=== PATIENT | male | born 1975 ===

== ENCOUNTER 2021-02-23 08:00 | Outpatient (REF) | payer BC, SELFPAY ==
[2021-02-23 09:11] LABS: Alanine Aminotransferase 12 U/L (0-40); Albumin Level 4.2 g/dL (3.5-5.0); Alkaline Phosphatase 67 U/L (39-117); Anion Gap 11 (12-20); Aspartate Amino Transferase 13 U/L (5-37); Bilirubin Total 0.5 mg/dL (0.0-1.0); Blood Urea Nitrogen 11 mg/dL (9-16); Calcium 9.4 mg/dL (8.4-10.2); Carbon Dioxide 25 mmol/L (22-29); Chloride 109 mmol/L (96-108); Cholesterol 122 mg/dL; Estimated Glomerular Filt Rate > 60; Glucose Fasting 95 mg/dL (60-99); HDL Cholesterol 31 mg/dL; LDL Cholesterol Calculated 68 mg/dl; Potassium 4.8 mmol/L (3.3-5.1); Sodium 140 mmol/L (135-145); Total Protein 7.3 g/dL (6.5-8.0); Triglycerides 116 mg/dL
[2021-02-23 09:36] LABS: Prostate Specific Antigen Scr 0.32 ng/mL (<0.05-4.0); TSH reflex Free T4 0.67 uIU/mL (0.32-4.0)
[2021-02-24 11:11] LABS: LDL Cholesterol Direct 73 mg/dL (<100)
== END 2021-02-23 08:01 | disposition home or self-care (01) ==
LOC: HO.LAB 08:00
PROVIDERS: PCP Family Medicine; Visit Provider Family Medicine
DX: Z00.00 Encounter for general adult medical examination without abnormal findings (principal); R10.32 Left lower quadrant pain; K92.1 Melena; Z12.5 Encounter for screening for malignant neoplasm of prostate; Z90.49 Acquired absence of other specified parts of digestive tract
CPT/HCPCS: 36415; 80053; 80061; 83721; 84153; 84443

== ENCOUNTER → 2021-03-08 14:26 | Outpatient (BNVA) | payer OTHER, SELFPAY | PROVIDERS: PCP Family Medicine; Referring Provider Family Medicine; Visit Provider Nurse Practitioner ==

== ENCOUNTER 2021-03-12 09:09 | Emergency (ER) | payer BC, SELFPAY ==
--- NOTE | ~2021-03-12 | CT_ITS ---
EXAMINATION: CT ABDOMEN AND PELVIS WITH CONTRAST CLINICAL INFORMATION: Left lower quadrant pain, history of diverticulitis with abscess COMPARISON: CT abdomen pelvis 02/28/2019 TECHNIQUE: Multidetector volumetric images were obtained from the superior aspect of the liver through the pubic symphysis following administration 85 mL of Omnipaque 350 intravenous contrast. Sagittal and coronal reformatted images were obtained on the technologist's workstation. Oral contrast: No This CT examination was performed using dose optimization techniques as appropriate, variously including the following: *Automated exposure control *Adjustment of mA and/or kV according to patient size (this includes techniques or standardized protocols for targeted exams where dose is matched to indication/reason for exam; i.e. extremities or head) *Use of iterative reconstruction technique DLP: 475 mGy-cm FINDINGS: LUNG BASES: There is platelike atelectasis right middle lobe medially. The lung bases are clear. The heart size is normal. LIVER, GALLBLADDER, AND BILIARY TREE: The liver is normal in size, shape, and attenuation. No focal hepatic lesion or biliary ductal dilatation is present. The gallbladder is small small size without any radiopaque calculi or wall thickening. PANCREAS: Unremarkable. SPLEEN: Unremarkable. ADRENAL GLANDS: Unremarkable. KIDNEYS AND URETERS: The kidneys are normal in size, shape, and attenuation. No hydronephrosis, hydroureter, or calculi seen. No perinephric stranding. BLADDER: The bladder is nondistended with mild anterior bladder wall thickening. No radiopaque calculi seen. GASTROINTESTINAL TRACT: There is scattered diverticuli, stool seen throughout the colon without distention or diverticulitis. There are annular sutures in the mid sigmoid colon with widely patent lumen. The small bowel loops are normal caliber. Appendix is normal caliber ABDOMINAL WALL: No significant hernia is appreciated. LYMPH NODES: No abnormal size retroperitoneal or mesenteric lymph nodes seen. VASCULAR: Unremarkable. PELVIC VISCERA: The prostate gland is normal size with central gland calcification. The soft tissues are normal. OSSEOUS STRUCTURES: Mild ventral spondylosis lower dorsal and lower lumbar spine. No lytic process. CT/CT abdomen pelvis w con IMPRESSION: Scattered colonic diverticulosis without diverticulitis. Anastomotic suture line along the mid sigmoid colon is widely patent. There is moderate stool in the left colon. Nonspecific mild anterior bladder wall thickening. Mild prostate enlargement. No acute intra-abdominal process Fleischner guidelines were followed.
[2021-03-12 09:14] VITALS: BP 136/76; PULSE 78; RESP 16; TEMP 36.1; O2SAT 98; BMI 25.8
--- NOTE | 2021-03-12 09:40 | ED_ITS ---
HPI - Abdominal Pain General Chief Complaint: Abdominal Pain Stated Complaint: l side lower abd pain Time Seen by Provider: 03/12/21 09:31 Source: patient Mode of arrival: ambulatory Limitations: no limitations History of Present Illness HPI narrative: 45-year-old male presents with left lower quadrant abdominal Pain and nausea. Patient has a history of diverticulitis with abscess of sigmoid colon requiring colon resection in [address] Hernandez. Patient states that since 2019 he has had ongoing symptoms of rectal bleeding, left lower quadrant pain, and nausea. States that the symptoms went away some months ago, but the last 2 months he has had increasing symptoms of left lower quadrant pain. patient endorses bright red blood per rectum and dark red blood. States he has been diagnosed with internal hemorrhoids. His patient had a visit with GI on March 08, 2021 for hematochezia, they recommended he get a CT scan. Patient states he has had regular bowel movements, no vomiting or diarrhea, no fevers, he is able to eat and drink. No chest pain, no lightheadedness, no shortness of breath. Patient is not vaccinated for COVID. Related Data Previous Rx's Medication Instructions Recorded lidocaine 5 % topical patch 1 patch TOPICAL DAILY #15 ea 03/12/21 Allergies Allergy/AdvReac Type Severity Reaction Status Date / Time shellfish derived Allergy Unknown HIVES Verified 03/08/21 14:39 [SHELLFISH DERIVED] Shellfish Allergy Unknown hives Uncoded 02/10/21 10:31 shellfish Allergy Unknown hives Uncoded 02/10/21 10:31 Review of Systems Constitutional: Denies body ache(s), Denies chills, Denies fatigue, Denies fever(s), Denies headache(s), Denies malaise and Denies weakness Eyes: Denies diplopia Denies vertigo, Denies dizziness, Denies otalgia, Denies headache(s), Denies mouth pain, Denies post nasal drip, Denies sinus pain, Denies sinus pressure, Denies sore throat and Denies throat swelling Cardiovascular: Denies chest pain, Denies syncope, Denies leg edema, Denies lightheadedness, Denies Loss of Consciousness, Denies palpitations and Denies dyspnea Respiratory: Denies chest congestion, Denies cough and Denies dyspnea Gastrointestinal: Reports abdominal pain, Reports melena, Reports hematochezia, Denies constipation, Denies diarrhea, Reports nausea and Denies vomiting Genitourinary: Denies genital lesions, Denies genital pain, Denies dysuria, Denies flank pain, Denies penile discharge, Denies scrotal swelling, Denies testicular mass, Denies testicular pain, Denies urinary frequency, Denies urinary hesitancy, Denies urinary incontinence and Denies urinary urgency Musculoskeletal: Reports no additional musculoskeletal complaints Denies confusion, Denies vertigo, Denies dizziness, Denies syncope, Denies headache(s) and Denies weakness Psychiatric: Denies anxiety, Denies confusion and Denies depression Endocrine: Denies fatigue and Denies palpitations Allergic/Immunologic: Denies throat swelling Physical Exam Verdana 4l Vital Signs: Verdana 4d Verdana 4d Vital Signs: Verdana 4d Verdana 4Bd Last Vital Signs Verdana 4d [employer] New 4d [employer] New 4d Temp 97 F 03/12/21 09:14 [employer] New 4d Pulse 65 03/12/21 10:31 [employer] New 4d Resp 16 03/12/21 10:31 BP 113/79 03/12/21 10:31 Pulse Ox 98 03/12/21 10:31 BMI result Body Mass Index 25.8 Const: General: no acute distress, alert and awake; No confusion Nutritional Appearance: well nourished Orientation/consciousness: patient oriented x3 and No confusion Limitations: no limitations HENMT: Head: Yes normal to inspection, Yes normocephalic and Yes atraumatic Ears: hearing grossly normal bilaterally, external ears normal, TM's normal bilaterally and EAC's normal General nose exam: Normal external nose present Face and sinus: Yes normal facial exam and Yes sinuses nontender Mouth: Normal oral and palatal mucosa present Throat: Yes posterior oropharynx normal Eyes: Conjunctivae: conjunctivae normal Pupils: Equal, round and reactive pupils present EOM: EOMs intact bilaterally Neck: Neck: Yes full ROM, Yes no lymphadenopathy and Yes supple Resp: Effort & Inspection: normal respiratory effort and able to speak in complete sentences Auscultation: clear to auscultation bilaterally, no crackles, no rales, no rhonchi and no wheezes Cardio: Rate: regular rate Rhythm: regular rhythm Heart sounds: S1 normal heart sound present and S2 normal heart sound present GI: Inspection: Yes normal to inspection Palpation (GI): Soft to palpation, Tenderness to palpation present (GI) in the LLQ (mild), Guarding due to palpation present (GI) in the LLQ (mild) and not rigid Percussion: Yes normal to percussion Auscultation: normal bowel sounds Rectal Exam - Male: Yes deferred (patient refused) Skin: General skin exam: no rashes or lesions noted Neuro: General: patient oriented x3 and No confusion Cranial nerves: Yes Equal, round and reactive pupils present Extrem: General: Yes normal to inspection and Yes full ROM Psych: Appearance: grossly normal Affect: normal affect Attitude: cooperative Thought process: Normal thought process present Course Course Course Narrative: 45-year-old male presents for left lower quadrant abdominal pain with nausea that has been worsening over the last 2 months. On exam, patient has stable vitals, is tender mildly guarding in his lower left side . Patient is refusing rectal exam. Will get labs, lactate, urine, CT CT/CT abdomen pelvis w con IMPRESSION: Scattered colonic diverticulosis without diverticulitis. ? Anastomotic suture line along the mid sigmoid colon is widely patent. There is moderate stool in the left colon. ? Nonspecific mild anterior bladder wall thickening. Mild prostate enlargement. ? No acute intra-abdominal process Reevaluation(s) Reevaluation #1: patient's chemistries, CBC, lipase, lactate, are all normal. Patient is not feeling better with morphine and Zofran states Tylenol and ibuprofen has not helped for this pain will try ketorolac CT did show mild bladder wall thickening, awaiting urine Reevaluation #2: patient is COVID negative, has trace blood in his urine. Will give Maalox, sent home with a lidocaine patch, counseled patient to follow up with GI, counseled patient to return if sudden severe abdominal pain, nausea vomiting, fevers, chest pain, shortness of breath MDM - Abdominal Pain Differential Diagnosis Differential diagnosis: Likely abdominal pain, calculus of kidney, diverticulitis, mesenteric ischemia, pancreatitis and small bowel obstruction Medical Records Attestation: I reviewed the patient's medical records. Lab Data Attestation: I reviewed the patient's lab results. Result diagrams: 03/12/21 10:26 03/12/21 10:26 Labs: Lab Results 03/12/21 03/12/21 03/12/21 Range/Units 10:26 10:26 10:26 WBC 10.6 (4.8-10.8) X10*3/uL RBC 4.63 (4.60-5.80) X10*6/uL Hgb 13.3 L (14.0-18.0) g/dl Hct 40.7 L (42.0-52.0) % MCV 87.9 (80.0-98.0) fL MCH 28.7 (27.0-33.0) pg MCHC 32.7 (31.0-36.0) g/dl RDW 12.5 (11.0-16.0) % Plt Count 285 (160-400) X10*3/uL MPV 9.8 (9.4-12.4) fL Immature Gran % (Auto) 0.2 (0.0-0.4) % Neut % (Auto) 74.4 H (45-73) % Lymph % (Auto) 18.9 L (20-40) % Florence % (Auto) 6.1 (2-11) % Eos % (Auto) 0.2 (0-4) % Baso % (Auto) 0.2 (0-2) % Lymph # (Auto) 2.0 (1.2-4.9) X10*3/uL Florence # (Auto) 0.6 (0.1-1.2) X10*3/uL Eos # (Auto) 0.0 (0.0-0.4) X10*3/uL Baso # (Auto) 0.0 (0.0-0.2) X10*3/uL Abs Immat Gran (auto) 0.02 (0.00-0.03) X10*3/uL Absolute Neuts (auto) 7.9 (2.0-8.3) x10*3/uL Absolute Nucleated RBC 0.000 (0.0-0.012) X10*3/uL Nucleated RBC % (auto) 0.0 (0.0-0.2) /100WBC Sodium 138 (135-145) mmol/L Potassium 4.2 (3.3-5.1) mmol/L Chloride 108 (96-108) mmol/L Carbon Dioxide 25 (22-29) mmol/L Anion Gap 9 L (12-20) BUN 10 (9-16) mg/dL Creatinine 0.85 (0.5-1.4) mg/dL Estim Creat Clear Calc 97.9 Estimated GFR > 60 Random Glucose 98 (60-115) mg/dL Lactic Acid 0.8 (0.5-2.0) mmol/L Calcium 9.6 (8.4-10.2) mg/dL Total Bilirubin 0.4 (0.0-1.0) mg/dL AST 14 (5-37) U/L ALT 11 (0-40) U/L Alkaline Phosphatase 69 (39-117) U/L Total Protein 7.4 (6.5-8.0) g/dL Albumin 4.2 (3.5-5.0) g/dL Lipase 6 L (8-78) U/L Urine Color Urine Appearance Urine pH (5.0-8.0) Ur Specific [place] (1.005-1.025) Urine Protein (NEG-TRACE) MG/DL Urine Glucose (UA) (NEG) MG/DL Urine Ketones (NEG) MG/DL Urine Blood (NEG) Urine Nitrite (NEG) Ur Leukocyte Esterase (NEG) Urine RBC (0) /HPF Urine WBC (0-4) /HPF Ur Squamous Epith Cells /LPF Urine Bacteria /LPF COVID-19 (DAYAN) COVID-19 Clin Com 03/12/21 03/12/21 03/12/21 Range/Units 11:09 11:20 11:46 WBC (4.8-10.8) X10*3/uL RBC (4.60-5.80) X10*6/uL Hgb (14.0-18.0) g/dl Hct (42.0-52.0) % MCV (80.0-98.0) fL MCH (27.0-33.0) pg MCHC (31.0-36.0) g/dl RDW (11.0-16.0) % Plt Count (160-400) X10*3/uL MPV (9.4-12.4) fL Immature Gran % (Auto) (0.0-0.4) % Neut % (Auto) (45-73) % Lymph % (Auto) (20-40) % Florence % (Auto) (2-11) % Eos % (Auto) (0-4) % Baso % (Auto) (0-2) % Lymph # (Auto) (1.2-4.9) X10*3/uL Florence # (Auto) (0.1-1.2) X10*3/uL Eos # (Auto) (0.0-0.4) X10*3/uL Baso # (Auto) (0.0-0.2) X10*3/uL Abs Immat Gran (auto) (0.00-0.03) X10*3/uL Absolute Neuts (auto) (2.0-8.3) x10*3/uL Absolute Nucleated RBC (0.0-0.012) X10*3/uL Nucleated RBC % (auto) (0.0-0.2) /100WBC Sodium (135-145) mmol/L Potassium (3.3-5.1) mmol/L Chloride (96-108) mmol/L Carbon Dioxide (22-29) mmol/L Anion Gap (12-20) BUN (9-16) mg/dL Creatinine (0.5-1.4) mg/dL Estim Creat Clear Calc Estimated GFR Random Glucose (60-115) mg/dL Lactic Acid (0.5-2.0) mmol/L Calcium (8.4-10.2) mg/dL Total Bilirubin (0.0-1.0) mg/dL AST (5-37) U/L ALT (0-40) U/L Alkaline Phosphatase (39-117) U/L Total Protein (6.5-8.0) g/dL Albumin (3.5-5.0) g/dL Lipase (8-78) U/L Urine Color YELLOW Urine Appearance CLEAR Urine pH 6.0 (5.0-8.0) Ur Specific [place] 1.025 (1.005-1.025) Urine Protein NEG (NEG-TRACE) MG/DL Urine Glucose (UA) NEG (NEG) MG/DL Urine Ketones NEG (NEG) MG/DL Urine Blood 1+ H (NEG) Urine Nitrite NEG (NEG) Ur Leukocyte Esterase NEG (NEG) Urine RBC 0-2 (0) /HPF Urine WBC 0 (0-4) /HPF Ur Squamous Epith Cells TRACE /LPF Urine Bacteria NONE /LPF COVID-19 (DAYAN) Cancelled Negative COVID-19 Clin Com Cancelled See Note Discharge Plan Discharge Clinical Impression: Left sided abdominal pain Patient Disposition: Home, Self-Care Instructions: Abdominal Pain (ED) Additional Instructions: call your primary care provider for follow-up appointment from today's emergency room visit. Please call GI at [phone] for follow-up appointment. I prescribed lidocaine patches to [facility] [address] for you Your labs, urine, and CT scan were all fine today. I do not have a cause for your lower left abdominal pain. If you have worsening abdominal pain, fevers, nausea or vomiting, chest pain, shortness of breath, or any other new or concerning symptoms please return to emergency room Prescriptions: New lidocaine 5 % adhesive patch,medicated 1 patch topical DAILY Qty: 15 0RF Rx Instructions: leave on most painful area for up to 12 hrs Referrals: Sharath Giron [Physician] - 2 days Stand Alone Forms: Work/School Release [facility] Past Medical History Medical History Abscess of sigmoid colon Diverticulitis of both large and small intestine with abscess Family history of coronary artery disease Surgical History History of dermoid cyst excision S/P laparoscopic-assisted sigmoidectomy S/P rotator cuff repair Social History Social History Housing: Apartment Alcohol intake: current Alcohol intake frequency: does not drink Patient Tobacco Use Status: Former Tobacco user e-Cigarette/Vaping Use: Never Used Use of substances other than those prescribed or required for medical reasons: Yes Substance Use Type: Marijuana Advance Directives: No Advance Directives Information Provided: No service: No Current occupational status: employed
[2021-03-12 10:30] LABS: MANUAL DIFF FLAG NO
[2021-03-12] MEDS: 0.9 % Sodium Chloride 1,000 ML 999 ML IV (10:30)
[2021-03-12] MEDS: Morphine Sulfate 4 MG/ML CARTRIDGE IVPUSH (10:30)
[2021-03-12] MEDS: ondansetron HCL 4 MG/2 ML VIAL IVPUSH (10:30)
[2021-03-12 10:31] VITALS: BP 113/79; PULSE 65; RESP 16; O2SAT 98
[2021-03-12 10:31] LABS: Basophils Percent Auto 0.2 % (0-2); Eosinophils Percent Auto 0.2 % (0-4); Hematocrit 40.7 % (42.0-52.0); Hemoglobin 13.3 g/dl (14.0-18.0); Imm Gran Abs Auto 0.02 X10*3/uL (0.00-0.03); Imm Gran Pct Auto 0.2 % (0.0-0.4); Lymphocytes Percent Auto 18.9 % (20-40); Mean Corpuscular HGB Conc 32.7 g/dl (31.0-36.0); Mean Corpuscular Hemoglobin 28.7 pg (27.0-33.0); Mean Corpuscular Volume 87.9 fL (80.0-98.0); Mean Platelet Volume 9.8 fL (9.4-12.4); Monocytes Absolute Auto 0.6 X10*3/uL (0.1-1.2); Monocytes Percent Auto 6.1 % (2-11); Neutrophils Absolute Auto 7.9 x10*3/uL (2.0-8.3); Neutrophils Percent Auto 74.4 % (45-73); Platelet Count 285 X10*3/uL (160-400); Red Blood Count 4.63 X10*6/uL (4.60-5.80); Red Cell Distribution Width 12.5 % (11.0-16.0); White Blood Count 10.6 X10*3/uL (4.8-10.8)
[2021-03-12 10:42] LABS: Lactic Acid 0.8 mmol/L (0.5-2.0)
[2021-03-12 10:52] LABS: Alanine Aminotransferase 11 U/L (0-40); Albumin Level 4.2 g/dL (3.5-5.0); Alkaline Phosphatase 69 U/L (39-117); Anion Gap 9 (12-20); Aspartate Amino Transferase 14 U/L (5-37); Bilirubin Total 0.4 mg/dL (0.0-1.0); Blood Urea Nitrogen 10 mg/dL (9-16); Calcium 9.6 mg/dL (8.4-10.2); Carbon Dioxide 25 mmol/L (22-29); Chloride 108 mmol/L (96-108); Creatinine Clr Calc Pharmacy 97.9; Estimated Glomerular Filt Rate > 60; Glucose Random 98 mg/dL (60-115); Lipase 6 U/L (8-78); Potassium 4.2 mmol/L (3.3-5.1); Sodium 138 mmol/L (135-145); Total Protein 7.4 g/dL (6.5-8.0)
[2021-03-12] MEDS: iohexoL 350 MG/ML 100 ML INFUS..BTL 85 ML IV (11:06)
[2021-03-12 11:50] LABS: Appearance Urine CLEAR; Color Urine YELLOW; Glucose Urine UA NEG (NEG); Leukocyte Esterase Urine NEG (NEG); Nitrite Urine NEG (NEG); Specific Gravity - Urine 1.025 (1.005-1.025); UACC Culture Trigger NO; Urine Blood 1+ (NEG); Urine Ketones NEG (NEG); Urine Protein NEG (NEG-TRACE)
[2021-03-12 12:00] LABS: COVID-19 Test Negative (Negative)
[2021-03-12 12:02] LABS: RBC Urine 0-2 /HPF (0); Squamous Epithelial Cell Urine TRACE /LPF; WBC Urine 0 /HPF (0-4)
[2021-03-12] MEDS: Ketorolac Tromethamine 30 MG/ML VIAL IVPUSH (12:13)
[2021-03-12] MEDS: Magnesium Hydrox/Alum Hydrox 30 ML ORAL.SUSP PO (12:31)
--- NOTE | 2021-03-12 12:34 | PC.NURSE ---
medicated per provider orders.
== END 2021-03-12 12:45 | disposition home or self-care (01) ==
PROVIDERS: Physician Assistant; Emergency Provider Emergency Medicine; PCP Family Medicine
DX: R10.32 Left lower quadrant pain (principal); Z20.822 Contact with and (suspected) exposure to COVID-19
CPT/HCPCS: 36415; 74177; 80053; 81001; 83605; 83690; 85025; 87635; 96361; 96374; 96375; 99284; 99285; J1885; J2270; J2405; Q9967

== ENCOUNTER → 2021-03-31 07:26 | Outpatient (BNVA) | payer BC, SELFPAY | PROVIDERS: PCP Family Medicine; Referring Provider Family Medicine; Visit Provider Nurse Practitioner | DX: R10.9 Unspecified abdominal pain (principal); R11.0 Nausea | CPT/HCPCS: 99212 ==

== ENCOUNTER → 2021-05-23 12:11 | Outpatient (BNVA) | payer BC, SELFPAY | PROVIDERS: PCP Family Medicine; Referring Provider Family Medicine; Visit Provider Nurse Practitioner | DX: Z13.89 Encounter for screening for other disorder (principal) ==

== ENCOUNTER 2021-08-30 10:01 | Outpatient (REF) | payer BC, SELFPAY ==
[2021-08-30 10:13] LABS: MANUAL DIFF FLAG NO
[2021-08-30 10:36] LABS: Basophils Percent Auto 0.2 % (0-2); Eosinophils Absolute Auto 0.1 X10*3/uL (0.0-0.4); Eosinophils Percent Auto 0.8 % (0-4); Hemoglobin 12.9 g/dl (14.0-18.0); Imm Gran Abs Auto 0.03 X10*3/uL (0.00-0.03); Imm Gran Pct Auto 0.3 % (0.0-0.4); Lymphocytes Absolute Auto 3.1 X10*3/uL (1.2-4.9); Lymphocytes Percent Auto 26.7 % (20-40); Mean Corpuscular HGB Conc 33.1 g/dl (31.0-36.0); Mean Corpuscular Hemoglobin 29.3 pg (27.0-33.0); Mean Corpuscular Volume 88.6 fL (80.0-98.0); Mean Platelet Volume 10.4 fL (9.4-12.4); Monocytes Percent Auto 8.4 % (2-11); Neutrophils Absolute Auto 7.5 x10*3/uL (2.0-8.3); Neutrophils Percent Auto 63.6 % (45-73); Platelet Count 329 X10*3/uL (160-400); Red Cell Distribution Width 12.6 % (11.0-16.0); White Blood Count 11.7 X10*3/uL (4.8-10.8)
[2021-08-30 10:50] LABS: Appearance Urine CLEAR; Color Urine YELLOW; Glucose Urine UA NEG (NEG); Leukocyte Esterase Urine NEG (NEG); Nitrite Urine NEG (NEG); Specific Gravity - Urine 1.015 (1.005-1.025); Urine Blood 1+ (NEG); Urine Ketones NEG (NEG); Urine Protein NEG (NEG-TRACE)
[2021-08-30 11:09] LABS: Alanine Aminotransferase 11 U/L (0-40); Albumin Level 4.4 g/dL (3.5-5.0); Alkaline Phosphatase 54 U/L (39-117); Anion Gap 10 (12-20); Aspartate Amino Transferase 14 U/L (5-37); Bilirubin Total 0.6 mg/dL (0.0-1.0); Blood Urea Nitrogen 9 mg/dL (9-16); Calcium 9.4 mg/dL (8.4-10.2); Carbon Dioxide 25 mmol/L (22-29); Chloride 108 mmol/L (96-108); Cholesterol 139 mg/dL; Estimated Glomerular Filt Rate > 60; Glucose Fasting 92 mg/dL (60-99); HDL Cholesterol 34 mg/dL; LDL Cholesterol Calculated 83 mg/dl; Potassium 4.6 mmol/L (3.3-5.1); Sodium 138 mmol/L (135-145); Total Protein 7.3 g/dL (6.5-8.0); Triglycerides 112 mg/dL
[2021-08-30 11:34] LABS: Prostate Specific Antigen Scr 0.62 ng/mL (<0.05-4.0); TSH reflex Free T4 0.18 uIU/mL (0.32-4.0)
[2021-08-30 11:37] LABS: WBC Urine 0 /HPF (0-4)
[2021-08-30 12:07] LABS: Free T4 (Free Thyroxine) 1.15 ng/dL (0.71-1.85)
== END 2021-08-30 10:02 | disposition home or self-care (01) ==
LOC: HO.LAB 10:01
PROVIDERS: PCP Family Medicine; Visit Provider Family Medicine
DX: Z00.00 Encounter for general adult medical examination without abnormal findings (principal); Z12.5 Encounter for screening for malignant neoplasm of prostate
CPT/HCPCS: 36415; 80053; 80061; 81001; 81003; 84153; 84439; 84443; 85025

== ENCOUNTER 2021-10-11 09:18 | Day surgery (SDC) | payer BC, SELFPAY ==
[2021-10-05 16:21] VITALS: BMI 27.7
[2021-10-11 09:33] VITALS: BP 136/75; PULSE 77; RESP 18; TEMP 36.9; O2SAT 97
[2021-10-11] MEDS: Lactated Ringers 1,000 ML 50 ML IVCONT (09:38)
--- NOTE | 2021-10-11 10:11 | P.HPSUR_ITS ---
Pre-Procedural Eval Section A Date of Service: 10/11/21 Section B Chief Complaint: Left lower quadrant pain,benign neoplasm of colon Relevant Family History (Specify if Yes): No Relevant Social History: Other (specify) (THC) Present Medications: see Short Stay Collaborative assessment Medical History: Significant History (Abscess of sigmoid colon Diverticulitis of both large and small intestine with abscess) History of Previous Operations: Relevant previous surgery/procedure and date(s) (History of dermoid cyst excision S/P laparoscopic-assisted sigmoidectomy S/P rotator cuff repair) Allergies: Allergies Allergy/AdvReac Type Severity Reaction Status Date / Time shellfish derived Allergy Unknown HIVES Verified 10/11/21 09:27 [SHELLFISH DERIVED] Shellfish Allergy Unknown hives Uncoded 07/21/21 16:14 Review of Systems Sugical H&P ROS: Negative: Constitution, Cardiovascular, Respiratory, Neurological, Psychiatric, Hem-Onc, Allergic/Immunologic, Gastrointestinal, Genitourinary, Musculoskeletal, Integumentary, Endocrine and Eyes/Ears/Nose/Thro at Exam Surgical H&P Exam: Normal: HEENT, Normal: Heart, Normal: Lungs, Normal: Extremities, Normal: Abdomen, Normal: Skin and Normal: Neurological Plan Diagnosis/Plan: Unchanged I have reviewed the history and physical and performed a pertinent physical examination on my patient. No changes have occurred unless specified.
--- NOTE | 2021-10-11 10:14 | P.OP_ITS ---
Operative Note Operative Note Date of Service: 10/11/21 Narrative: Operative Information Procedure Description: Colonoscopy Indication: LLQ pain, rectal bleeding Anesthesia: MAC COLONOSCOPY Instrument: Olympus variable stiffness pediatric scope 190L Colonoscopy Monitoring: Vital signs and clinical assessment, continuous EKG monitoring, Pulse oximetry, Carbon Dioxide monitoring and blood pressure monitoring were done throughout the procedure. Colon withdrawal time was 14 minutes. Procedure: The patient was placed in the left lateral decubitis position and pre-procedure medications were administered. After a digital rectal examination of the ano-rectum, the video colonoscope was inserted into the rectum and advanced through the colon to the cecum/TI. The colonoscope was slowly withdrawn in a retrograde panoramic fashion and the colon mucosa was carefully examined including a retroflexed view of the rectum. Findings and interventions are described below. Procedure Difficulty: easy Findings: Terminal Ileum-normal, bx taken Right and left colon bx taken in separate jars Cecum: 4-5 mm sessile polyp removed with cold forceps Ascending Colon: normal Transverse Colon -normal Descending Colon: 10-12 mm sessile polyp removed with cold snare Sigmoid Colon: prior end to end anastomosis noted at around 22 cm from anal verge, moderate diverticulosis noted Rectum: Retroflexion with moderate sized internal hemorrhoids, grade I Anorectum - normal Colon preparation: [place] Bowel Preparation Scale Right colon; 3 Transverse colon: 3 Left colon; 3 (0 = Unprepared colon segment with mucosa not seen due to solid stool that cannot be cleared. 1 = Portion of mucosa of the colon segment seen, but other areas of the colon segment not well seen due to staining, residual stool and/or opaque liquid. 2 = Minor amount of residual staining, small fragments of stool and/or opaque liquid, but mucosa of colon segment seen well. 3 = Entire mucosa of colon segment seen well with no residual staining, small fragments of stool or opaque liquid) Impression and Post Procedure Diagnosis: polyps internal hemorrhoids diverticular disease Plan: High fiber diet leaflet Avoid straining at stool, epsom salts and sitz bath, anusol supps or cream Repeat Colonoscopy in 3-4 years or earlier if clinically indicated Above findings were reviewed with the patient and relevant handouts were provided if indicated.
--- NOTE | 2021-10-11 10:21 | P.CONAN_ITS ---
FORMERLY [facility] Active Problems Active Problems: All Active Problems (Updated 08/31/21 @ 10:47 by Lalito Giron) Low TSH level (Acute) Anemia (Acute) Low HDL (under 40) (Acute) Mild anemia (Acute) Screening for colon cancer (Acute) Screening for prostate cancer (Acute) Adult general medical exam (Acute) Hematochezia (Acute) Nausea (Acute) Left sided abdominal pain (Acute) Tubular adenoma of colon (Acute) LLQ abdominal pain (Acute) Laboratory exam ordered as part of routine general medical examination (Acute) Past Medical History Medical History Abscess of sigmoid colon Diverticulitis of both large and small intestine with abscess Family history of coronary artery disease Family History Family history of problems with anesthesia: No Surgical History Surgical History History of dermoid cyst excision S/P laparoscopic-assisted sigmoidectomy S/P rotator cuff repair History of Problems with Anesthesia: No Social History Social History Housing: Apartment Alcohol intake: current Alcohol intake frequency: does not drink Patient Tobacco Use Status: Former Tobacco user e-Cigarette/Vaping Use: Never Used Second Hand Smoke Exposure: No Substance Use Type: Marijuana Substance Use Frequency: Daily Advance Directives: No Advance Directives Information Provided: Yes Nutrition Risks: No Nutritional Risk service: No Current occupational status: employed Current occupational exposures/hazards: No Cognitive needs: No Hearing needs: No Vision needs: No Meds Allergies Allergy/AdvReac Type Severity Reaction Status Date / Time shellfish derived Allergy Unknown HIVES Verified 10/11/21 09:27 [SHELLFISH DERIVED] Shellfish Allergy Unknown hives Uncoded 07/21/21 16:14 Active Medications: Current Medications Lactated Ringer's (Lr) 1,000 mls @ 50 mls/hr IVCONT .Q20H SANDRA Last Admin: 10/11/21 09:38 Dose: 50 mls/hr Exam Exam Date and Time: October 11, 2021 1021 Height,Weight and Vital Signs: Height 5 ft 6 in Weight 78.018 kg Last Vital Signs Temp 98.4 F 10/11/21 09:33 Pulse 77 10/11/21 09:33 Resp 18 10/11/21 09:33 BP 136/75 10/11/21 09:33 Pulse Ox 97 10/11/21 09:33 O2 Del Method 10/11/21 09:33 Airway Mallampati Class: I TM Dist: >3cm Loose/Missing/Broken Teeth: No (Rrr) Lungs: clear Assessment and Plan Final Anesthetic Review Family History of Problems with Anesthesia: No History of Problems with Anesthesia: No NPO: Yes ASA Class: II Final Preanesthetic Review: No Changes in Pt Med Stat, Meds/Allgs Chart Reviewed, Consent Obtained/Reviewed and Anes Risks/Benef Reviewed Patient Risk: Low Procedure Risk: Low Anesthetic Plan Anesthetic Plan: MAC: Disposition: Standard PACU
[2021-10-11 11:06] VITALS: BP 97/57; PULSE 58; RESP 24; TEMP 36.5; O2SAT 96
[2021-10-11 11:21] VITALS: BP 91/44; PULSE 59; RESP 20; TEMP 36.5; O2SAT 96
[2021-10-11 11:36] VITALS: BP 104/60; PULSE 55; RESP 18; TEMP 36.5; O2SAT 96
== END 2021-10-11 11:58 | disposition home or self-care (01) ==
PROVIDERS: PCP Family Medicine; Visit Provider Internal Medicine Gastroenterology
PROC: 0DJD8ZZ Inspection of Lower Intestinal Tract, Via Natural or Artificial Opening Endoscopic (ICD-10-PCS; CPT 45378; principal; 2021-10-11 10:40)
DX: K62.5 Hemorrhage of anus and rectum (principal); Z86.010 Personal history of colon polyps; D12.4 Benign neoplasm of descending colon; K63.5 Polyp of colon; K57.30 Diverticulosis of large intestine without perforation or abscess without bleeding; K64.0 First degree hemorrhoids; Z87.19 Personal history of other diseases of the digestive system; Z90.49 Acquired absence of other specified parts of digestive tract; Z98.0 Intestinal bypass and anastomosis status; F12.90 Cannabis use, unspecified, uncomplicated; Z87.891 Personal history of nicotine dependence
CPT/HCPCS: 45385; 45380; 88305

== ENCOUNTER 2022-03-23 09:24 | Emergency (ER) | payer SELFPAY ==
[2022-03-23 09:51] VITALS: BP 122/64; PULSE 70; RESP 16; TEMP 36.4; O2SAT 98; BMI 27.4
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
== END 2022-03-23 11:26 | disposition home or self-care (01) ==
PROVIDERS: Emergency Provider Emergency Medicine
DX: T14.8XXA Other injury of unspecified body region, initial encounter (principal); V43.62XA Car passenger injured in collision with other type car in traffic accident, initial encounter; M79.10 Myalgia, unspecified site; Y93.89 Activity, other specified; Y92.414 Local residential or business street as the place of occurrence of the external cause; Y99.9 Unspecified external cause status
CPT/HCPCS: 99283

== ENCOUNTER 2022-12-25 10:28 | Emergency (ER) | payer OTHER, SELFPAY ==
--- NOTE | ~2022-12-25 | XR_ITS ---
EXAMINATION: XR SHOULDER, RIGHT CLINICAL INFORMATION: Shoulder pain COMPARISON: None available. TECHNIQUE: AP external rotation, Grashey, scapular Y, and axillary views of the right shoulder. FINDINGS: No acute fracture or dislocation is seen. Glenohumeral and acromioclavicular alignment is anatomic with normal joint space. No abnormal soft tissue calcifications. No suspicious lung findings. XR/XR shoulder RT min 2V IMPRESSION: No radiographic evidence of acute osseous abnormality.
[2022-12-25 10:46] VITALS: BP 127/75; PULSE 83; RESP 16; TEMP 37.1; O2SAT 99; BMI 25.8
--- NOTE | 2022-12-25 12:16 | ED.EXTPRO ---
HPI - Extremity Problem General Chief complaint: Extremity Problem Stated complaint: Shoulder pain Time Seen by Provider: 12/25/22 10:44 Source: patient Mode of arrival: ambulatory Limitations: no limitations History of Present Illness HPI Narrative: this is a 47-year-old male who is right-hand dominant who presents the ER with complaints of right shoulder pain after an injury 4 years ago. Patient reports that he was fishing and pulled on a fishing line very hard and felt a snapping sensation in his right shoulder. Since then he has had intermittent pain. It seems over the last few weeks the pain has been more consistent. He denies any associated weakness, numbness or tingling of the extremity. Related Data Previous Rx's Medication Instructions Recorded peg 3350 240 gram-electrolytes 240 ml PO Q10M #4,000 mL 10/10/21 22.72 gram-6.72 g-5.84 g powdr for soln acetaminophen 500 mg tablet 500 mg PO Q6H PRN fever or pain 03/23/22 (Tylenol Extra Strength) #14 tabs cyclobenzaprine 5 mg tablet 5 mg PO Q8H PRN pain (scale score 03/23/22 7-10) 5 days #14 tabs lidocaine 5 % topical patch 1 patch topical DAILY PRN pain #30 03/23/22 (Lidoderm) ea naproxen 500 mg tablet 500 mg PO BID PRN pain 10 days #20 03/23/22 tabs cyclobenzaprine 10 mg tablet 10 mg PO TID PRN muscle spasm #8 12/25/22 tabs naproxen 500 mg tablet 500 mg PO BID PRN pain #30 tabs 12/25/22 Allergies Allergy/AdvReac Type Severity Reaction Status Date / Time shellfish derived Allergy Unknown HIVES Verified 12/25/22 10:46 [SHELLFISH DERIVED] Shellfish Allergy Unknown hives Uncoded 12/25/22 10:46 Review of Systems Review of Systems: Yes all other systems are reviewed and are negative Constitutional: Constitutional: Reports no additional constitutional complaints, Denies body ache(s), Denies chills, Denies fever(s), Denies headache(s) and Denies weakness Eyes: Eyes: Reports no additional eye complaints and Denies change in vision ENT: Reports system reviewed and no additional complaints, except as documented, Denies dizziness, Denies headache(s), Denies nasal congestion, Denies nasal discharge and Denies neck pain Cardiovascular: Cardiovascular: Reports no additional cardiovascular complaints, Denies chest pain, Denies leg edema and Denies dyspnea Respiratory: Respiratory: Reports no additional respiratory complaints, Denies cough and Denies dyspnea Gastrointestinal: Gastrointestinal: Reports no additional gastrointestinal complaints, Denies abdominal pain, Denies diarrhea, Denies nausea and Denies vomiting Genitourinary: Genitourinary: Denies urinary incontinence Musculoskeletal: Musculoskeletal: Reports no additional musculoskeletal complaints, Denies back pain, Reports arthralgias, Denies joint swelling, Denies neck pain, Denies numbness and Denies tingling Integumentary/Breasts: Skin/Breast: Reports system reviewed and no additional complaints, except as docu and Denies rash Neurologic: Reports system reviewed and no additional complaints, except as documented, Denies Abnormal speech present, Denies dizziness, Denies headache(s), Denies numbness, Denies tingling and Denies weakness PMFSH Past Medical History Attestation statement: The following information was validated with the patient. Source: old records reviewed and nursing notes reviewed Medical History Diverticulitis of both large and small intestine with abscess Abscess of sigmoid colon Family history of coronary artery disease Surgical History History of dermoid cyst excision S/P rotator cuff repair S/P laparoscopic-assisted sigmoidectomy Social History Social History Housing: Apartment Alcohol intake: never Patient Tobacco Use Status: Former Tobacco user e-Cigarette/Vaping Use: Never Used Second Hand Smoke Exposure: No Substance Use Type: Marijuana Advance Directives: No Advance Directives Information Provided: Yes service: No Current occupational status: employed Current occupational exposures/hazards: No Cognitive needs: No Hearing needs: No Vision needs: No Physical Exam Vital Signs: Vital Signs: Last Vital Signs Temp 98.8 F 12/25/22 10:46 Pulse 83 12/25/22 10:46 Resp 16 12/25/22 10:46 BP 127/75 12/25/22 10:46 Pulse Ox 99 12/25/22 10:46 O2 Del Method Room Air 12/25/22 10:46 BMI result Body Mass Index 25.8 Const: General: cooperative, healthy appearing, comfortable and no acute distress Orientation/consciousness: patient oriented x3 Limitations: no limitations HEENT: Head: Yes normal to inspection Ears: hearing grossly normal bilaterally General nose exam: Normal external nose present Face and sinus: Yes normal facial exam Mouth: Normal oral and palatal mucosa present Throat: Yes posterior oropharynx normal Eyes: General: appearance normal, both eyes and all related structures Pupils: Equal, round and reactive pupils present Neck: Neck: Yes normal visual inspection Chest: Chest palpation & inspection: normal inspection of the chest Resp: Effort & Inspection: normal respiratory effort Auscultation: clear to auscultation bilaterally Cardio: Rate: regular rate Rhythm: regular rhythm Peripheral pulses: Peripheral pulses 2+ throughout GI: Inspection: Yes normal to inspection Palpation (GI): Soft to palpation and nontender Auscultation: normal bowel sounds Back/Spine/Pelvis: Thoracic/Lumbar Spine: thoracic and lumbar spine normal to inspection Skin: General skin exam: no rashes or lesions noted Neuro: General: patient oriented x3, no focal motor deficits and normal sensation to monofilament Cranial nerves: Yes Equal, round and reactive pupils present Cognition (Neuro): normal cognition Speech: No Abnormal speech present Gait exam (Neuro): Normal gait present Motor exam (neuro): 5/5 motor strength present throughout Extrem: Other: There is pain and tenderness the right anterior shoulder proximal humerus with full range of motion both actively and passively. Normal radial and ulnar pulses distally. Normal sensation distally. No swelling or deformity noted General: Yes normal to inspection Course Course Course Narrative: x-ray show no acute fracture. Likely strain. Reviewed worrisome signs and symptoms when to return to the emergency room. Comfortable plan for discharge home Medications Administered Discontinued Medications Generic Name Dose Route Start Last Admin Trade Name Freq PRN Reason Stop Dose Admin Ketorolac Tromethamine 30 mg 12/25/22 12:14 12/25/22 12:26 Ketorolac Tromethamine 30 Mg/Ml Vial IM 12/25/22 12:15 30 mg ONCE ONE Administration Medical Decision Making Medical Decision Making [facility] Narrative: this is a 47-year-old male who is right-hand dominant who presents the ER with complaints of right shoulder pain after an injury 4 years ago. Patient reports that he was fishing and pulled on a fishing line very hard and felt a snapping sensation in his right shoulder. Since then he has had intermittent pain. It seems over the last few weeks the pain has been more consistent. He denies any associated weakness, numbness or tingling of the extremity. There is pain and tenderness the right anterior shoulder proximal humerus with full range of motion both actively and passively. Normal radial and ulnar pulses distally. Normal sensation distally. No swelling or deformity noted will check x-rays, provide analgesia Differential Diagnosis Differential Diagnoses: The differential diagnosis associated with the presentation includes strain, sprain, rotator cuff injury no deformity or swelling suggest proximal biceps tendon injury low concern for fracture or dislocation Admission/Observation Consideration of admission/observation: Escalation of care including admission/observation considered no complex fracture, dislocation or vascular injury requiring emergent orthopedic consultation and/or advanced imaging Independent Interpretation I performed an independent interpretation of an: Plain X-Ray Interpretation: I independently reviewed the x-ray and agree with Radiology report Radiology Impression Discussion of test interpretation with radiology: I have reviewed the radiologist's reading. Radiologist Impression: [place] [id number] XRay Report Signed Patient: Sarkis Palomo MR#: [id number] : 1975 Acct:[id number] Age/Sex: 47 / M ADM Date: 12/25/22 Loc: .ED Attending Dr: Ordering Physician: Sia Stevens NP Date of Service: 12/25/22 Procedure(s): XR shoulder RT min 2V Accession Number(s): [id number] cc: Fidel Damon MD; Sia Stevens NP~ EXAMINATION: XR SHOULDER, RIGHT CLINICAL INFORMATION: Shoulder pain COMPARISON: None available. TECHNIQUE: AP external rotation, Grashey, scapular Y, and axillary views of the right shoulder. FINDINGS: No acute fracture or dislocation is seen. Glenohumeral and acromioclavicular alignment is anatomic with normal joint space. No abnormal soft tissue calcifications. No suspicious lung findings. XR/XR shoulder RT min 2V IMPRESSION: No radiographic evidence of acute osseous abnormality. Tests considered The following testing was considered but not selected: no complex fracture, dislocation or vascular injury requiring advanced imaging Discharge Plan Discharge Clinical Impression: Right shoulder strain Patient Disposition: Home, Self-Care Instructions: Muscle Strain (ED) Additional Instructions: x-ray shows no fracture as we discussed there are other structures within the shoulder you may need to have an MRI if you have continued pain which will be ordered by your primary care doctor Apply ice to the area Take medications as prescribed Prescriptions: New naproxen 500 mg tablet 500 mg PO BID PRN (Reason: pain) Qty: 30 0RF cyclobenzaprine 10 mg tablet 10 mg PO TID PRN (Reason: muscle spasm) Qty: 8 0RF No Action peg 3350-electrolytes 240-22.72-6.72 -5.84 gram recon soln 240 ml PO Q10M Qty: 4000 0RF Rx Instructions: until fecal effluent is clear acetaminophen [Tylenol Extra Strength] 500 mg tablet 500 mg PO Q6H PRN (Reason: fever or pain) Qty: 14 0RF lidocaine [Lidoderm] 5 % adhesive patch,medicated 1 patch topical DAILY MDD remove after 12 hours PRN (Reason: pain) Qty: 30 0RF Rx Instructions: leave on most painful area for up to 12 hrs naproxen 500 mg tablet 500 mg PO BID PRN (Reason: pain) 10 Days Qty: 20 0RF cyclobenzaprine 5 mg tablet 5 mg PO Q8H PRN (Reason: pain (scale score 7-10)) 5 Days Qty: 14 0RF Referrals: Fidel Damon MD [Primary Care Provider] - 01/23/23
[2022-12-25] MEDS: Ketorolac Tromethamine 30 MG/ML VIAL IM (12:26)
== END 2022-12-25 14:49 | disposition home or self-care (01) ==
PROVIDERS: Emergency Provider Emergency Medicine; PCP Family Medicine
DX: S46.911A Strain of unspecified muscle, fascia and tendon at shoulder and upper arm level, right arm, initial encounter (principal); X58.XXXA Exposure to other specified factors, initial encounter; Y93.9 Activity, unspecified; Y92.9 Unspecified place or not applicable; Y99.9 Unspecified external cause status; M25.511 Pain in right shoulder
CPT/HCPCS: 73030; 96372; 99283; 99284; J1885

== ENCOUNTER 2023-01-16 10:36 | Outpatient (AMB) | payer OTHER, SELFPAY ==
--- NOTE | 2023-01-16 10:40 | A.OFFPC_ITS ---
Vital Signs 01/16/23 10:41 Height 5 ft 7 in Weight 162 lb 2 oz BMI 25.4 BP 130/80 Blood Pressure Location Rt brachial Position Sitting Respiration 13 Pulse 89 Pulse Source Pulse Oximeter Temp 97.6 F Temp Source Temporal Artery Scan Pulse Oximetry (%) 99 Oxygen Delivery Method Room Air Intake Visit Reasons[place] [facility] [place] Intake Note: Patient states that hes been having issues with his right shoulder. Patient states that the past 2 years the right shoulder pain has gotten worse and has been limiting his day to day routine. Pain has been effecting sleep as well. Pain goes from shoulder to elbow. Ultrasound Technol Required: No Accompanied by: Self / Same As Patient Allergies shellfish derived [SHELLFISH DERIVED] Allergy (Unknown, Verified 01/16/23 10:57) HIVES Shellfish Allergy (Unknown, Uncoded 01/16/23 10:57) hives Medication List - Last Reconciled 01/16/23 by Carly Rojas CNP acetaminophen (Tylenol Extra Strength) 500 mg PO Q6H PRN naproxen 500 mg PO BID PRN Tobacco use date assessed: 01/16/23 Dental Screening Dental Screen Date: 01/16/23 Did you have a dental visit in the last 12 months?: Yes Did you have a dental problem in the last 6 months where you did not have access to dental care?: No Was dental information given to patient?: Patient has dentist HPI HPI Comments History of Present Illness Details 47-year-old male presents for right shou lder pain follow-up He was evaluated and treated at [facility] [place] [facility] for right shoulder pain last month. Xray revealed no acute findings. He was prescribed Naproxen and Cycnobenzaprine for muscle strain He notes that he has been experiencing the pain on and off for the past 2 years. He states that the pain radiates to his triceps and elbow with ROM of the right shoulder. He notes that he had his left shoulder repaired in 2003 and experiencing some pain in the left shoulder. Therefore, he has been using his right shoulder more. He works for [employer] and does a lot of lifting including heavy items. He denies fall, injury, or trauma. He notes that Naproxen provides some relief and Cyclobenzaprine provided some relief. 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 Sharath Ch, Marilia Wilson, Michele Elizabeth and colleagues, with an educational sussy from [employer]. Review of Systems Const Details: Const Denies chills, Denies fatigue, Denies fever(s), Denies headache(s) and Denies weakness ENT Denies dizziness and Denies headache(s) Card Denies chest pain, Denies lightheadedness, Denies dyspnea and Denies other (Palpitations) Resp Denies cough, Denies dyspnea, Denies wheezing and Denies other ( shortness of breath) GI Denies abdominal pain, Denies melena, Denies hematochezia, Denies change in bowel habits, Denies dyspepsia and Denies nausea Denies hematuria and Denies dysuria Musc Reports as per HPI Skin/Breast Denies rash, Denies unusual bruising and Denies wounds Neuro Denies abnormal gait, Denies dizziness, Denies headache(s), Denies memory loss, Denies numbness, Denies Sensory deficit (Neuro), Denies tingling and Denies weakness Psych Denies anxiety, Denies depression, Denies memory loss Endo Denies cold intolerance, Denies fatigue, Denies heat intolerance, Denies polydipsia and Denies polyuria Aller/Immun Denies wheezing Physical exam (Primary Care) Vital Signs: Last Vital Signs Temp 97.6 F 01/16/23 10:41 Pulse 89 01/16/23 10:41 Resp 13 01/16/23 10:41 BP 130/80 01/16/23 10:41 Pulse Ox 99 01/16/23 10:41 Oxygen Delivery Method Room Air 01/16/23 10:41 BMI result Body Mass Index 25.4 Tobacco/Smoking Status: Tobacco use Status Tobacco use date assessed 01/16/23 01/16/23 10:53 Patient Tobacco Use Status Former Tobacco user 01/16/23 10:53 e-Cigarette/Vaping Use Never Used 01/16/23 10:53 Thrive Assessment: Date of Thrive Assessment Date Thrive assessed 02/10/21 01/16/23 10:53 Const Other: General: no acute distress and well developed Nutritional Appearance: well nourished Orientation/consciousness: patient oriented x3 HENMT Head: Yes normocephalic and Yes atraumatic Eyes General: appearance normal, both eyes and all related structures Pupils: Equal, round and reactive pupils present EOM: EOMs intact bilaterally Resp Effort & Inspection: normal respiratory effort Auscultation: clear to auscultation bilaterally Cardio Rate: regular rate Rhythm: regular rhythm Heart sounds: S1 normal heart sound present, S2 normal heart sound present, no gallops, no murmurs and no rubs GI Palpation (GI): No Abdominal aortic bruit present, Soft to palpation, nontender, No hepatosplenomegaly present and No Rebound tenderness present Auscultation: normal bowel sounds General: Yes no CVA tenderness Back/Spine/Pelvis Back: no CVA tenderness Cervical Spine: cervical ROM normal and No Cervical spine tenderness Thoracic/Lumbar Spine: thoraco-lumbar ROM normal, No pain with thoraco-lumbar ROM, No thoracic spinal tenderness and No lumbar spinal tenderness Extrem General: Yes normal to inspection, No edema and No calf tenderness Tenderness with range of motion of the right deltoid. No swelling, erythema, or visible signs of trauma or injury Skin General: warm and dry. Normal skin color. Normal skin turgor Neuro General: patient oriented x3, gait normal and no focal neuro deficit Cranial nerves: Yes Equal, round and reactive pupils present Cognition (Neuro): normal cognition Gait exam (Neuro): Normal gait present Sensory Exam: No Sensory deficit (Neuro) Psych Appearance: grossly normal Affect: normal affect Attitude: cooperative Thought process: Normal thought process present Assessment and Plan Assessment & Plan (1) Right shoulder pain: Code(s): M25.511 - Pain in right shoulder Plan: Reports intermittent right shoulder pain for the past 2 years. He has been using his right arm more after left rotator cuff repair in 2003. 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 No swelling, erythema, or visible signs of trauma or injury Likely deltoid strain or sprain Naproxen and cyclobenzaprine as prescribed Warm/cold compresses encouraged Referred to physical therapy Advised to avoid heavy lifting Follow-up with worsening or new symptoms Verbalized understanding and agreed with treatment plan Orders: Orders PT Evaluation and Treatment Today M25.511 - Pain in right shoulder Medications: New cyclobenzaprine 10 mg PO BID PRN 60 tabs 0RF muscle spasm Refilled naproxen 500 mg PO BID PRN 30 tabs 0RF pain Coding Level of Care Code Est Pt Level 3 (07249) Diagnoses Right shoulder pain M25.511
[2023-01-16 10:41] VITALS: BP 130/80; PULSE 89; RESP 13; TEMP 36.4; O2SAT 99; BMI 25.4
== END 2023-01-16 11:12 | disposition home or self-care (01) ==
PROVIDERS: PCP Family Medicine; Visit Provider Nurse Practitioner Family
DX: M25.511 Pain in right shoulder (principal)
CPT/HCPCS: 99213

== ENCOUNTER 2023-01-29 08:40 | Outpatient (AMB) | payer OTHER, SELFPAY ==
[2023-01-29 08:42] VITALS: BP 102/54; PULSE 74; RESP 13; O2SAT 97; BMI 26.0
--- NOTE | 2023-01-29 08:42 | A.OFFPC_ITS ---
Vital Signs 01/29/23 08:42 Height 5 ft 7 in Weight 166 lb BMI 26.0 BP 102/54 L Blood Pressure Location Lt brachial Position Sitting Respiration 13 Pulse 74 Pulse Source Pulse Oximeter Pulse Oximetry (%) 97 Intake Visit Reasons: shoulder pain Intake Note: Patient reports pain in the right shoulder x2 years. Patient reports previous surgery on the left shoulder (rotator cuff-2003) and he has used his right shoulder more often and causing it to become more painful. Patient reports he was given medication which does not seem to help. 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 Patient reports previous surgery on the left shoulder (rotator cuff-2003) and he has used his right shoulder more often and causing it to become more painful. Patient reports he was given medication which does not seem to help. Pt reports he has not started physical therapy yet. 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 Sharath Ch, Marilia Wilson, Michele Elizabeth and colleagues, with an educational sussy from [employer]. Review of Systems Const Denies chills, Denies fatigue, Denies fever(s), Denies headache(s) and Denies weakness ENT Denies dizziness and Denies headache(s) Card Denies dyspnea Resp Denies cough, Denies dyspnea, Denies wheezing and Denies other (shortness of breath) Musc Details: R shoulder pain Denies numbness and Denies tingling Neuro Denies dizziness, Denies headache(s), Denies numbness, Denies tingling and Denies weakness Psych Denies anxiety and Denies depression Endo Denies fatigue Aller/Immun Denies wheezing Physical exam (Primary Care) Vital Signs: Last Vital Signs Pulse 74 01/29/23 08:42 Resp 13 01/29/23 08:42 BP 102/54 L 01/29/23 08:42 Pulse Ox 97 01/29/23 08:42 BMI result Body Mass Index 26.0 Tobacco/Smoking Status: Tobacco use Status Tobacco use date assessed 01/16/23 01/29/23 08:48 Patient Tobacco Use Status Former Tobacco user 01/29/23 08:48 e-Cigarette/Vaping Use Never Used 01/29/23 08:48 Thrive Assessment: Date of Thrive Assessment Date Thrive assessed 02/10/21 01/29/23 08:48 Const General: well developed; No acute distress Nutritional Appearance: well nourished Orientation/consciousness: patient oriented x3 HENMT Head: Yes normocephalic and Yes atraumatic Eyes General: appearance normal, both eyes and all related structures Pupils: Equal, round and reactive pupils present EOM: EOMs intact bilaterally Resp Effort & Inspection: normal respiratory effort Neuro General: patient oriented x3 and gait normal Cranial nerves: Yes Equal, round and reactive pupils present Psych Affect: normal affect Assessment and Plan Assessment & Plan (1) Right shoulder pain: Code(s): M25.511 - Pain in right shoulder Plan: Ongoing?right?shoulder?pain.??X-ray?Novembe r?did?not?show?any?bony?injury?or?abnormality.??Was?seen?about?2?weeks?ago?and?p hysical?therapy?was?ordered. Patient?did?not?realize?he?could?schedule?physical?therapy?already?and?so?has?no t?begun. Wi ll?change?naproxen?2?meloxicam?as?he?says?the?naproxen?was?not?helping?much?and? can?continue?Flexeril Will?get?him?back?in?3?weeks?to?reassess?and?if?he?has?not?had?significant?impro vement,?will?refer?him?to?Ortho Orders: Referrals Orthopedics Referral M25.511 - Pain in right shoulder Medications: New meloxicam 15 mg PO DAILY 30 tabs 2RF 30 days Discontinued 2 naproxen Discontinued Reason: Doctor's Order 500 mg PO BID PRN 30 tabs 0RF pain Coding Level of Care Code Est Pt Level 3 (16198) Diagnoses Right shoulder pain M25.511
== END 2023-01-30 09:18 | disposition home or self-care (01) ==
PROVIDERS: PCP Family Medicine; Visit Provider Family Medicine
DX: M25.511 Pain in right shoulder (principal)
CPT/HCPCS: 99213

== ENCOUNTER 2023-02-19 12:48 | Outpatient (AMB) | payer OTHER, SELFPAY ==
[2023-02-19 12:52] VITALS: BMI 26.0
--- NOTE | 2023-02-19 12:52 | MHC.OFFVIS ---
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 About 4 years ago while fishing he pulled on the line and felt a snap in his shoulder. Since this injury he has had intermittent pain in the shoulder. He has tried Meloxicam, naproxen and muscle relaxers. 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 He complains of intermittent shoulder pain with daily activity. He first injured his shoulder in ~2019 while fishing. He has found some relief from PT and NSAIDs in the past. Injections have not bee helpful. He works at [employer]. 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 Current occupational exposures/hazards: No Cognitive needs: No Hearing needs: No Vision needs: No Review of Systems Const All systems reviewed & are unremarkable except as noted in HPI and below Physical Exam Vital Signs: BMI result Body Mass Index 26.0 Const General: no acute distress, alert and awake Orientation/consciousness: patient oriented x3 HEENT Head: Yes normocephalic and Yes atraumatic Eyes EOM: EOMs intact bilaterally Resp Effort & Inspection: normal respiratory effort and able to speak in complete sentences Cardio Jugular venous distension: no JVD Skin General skin exam: turgor normal Rashes: no rashes Neuro General: patient oriented x3 Extrem Other: 4/5 EC +h/n neg lift off 45/90/130/l5 no acj ttp Psych Appearance: grossly normal Affect: normal affect Attitude: cooperative Results Reviewed Results Reviewed: I personally reviewed relevant radiographs. Nl radiographs right shoudler Assessment & Plan Assessment & Plan (1) Internal derangement of right shoulder: Code(s): M24.811 - Other specific joint derangements of right shoulder, not elsewhere classified Plan: [place] of left rtc repair with 2 years of ongoing right shoulder pain. He now has difficulty working and sleeping. He has not benefitted from PT in the past of injections and he takes NSAIDs and tylenol without benefit. He is initiating another course of PT. I recommend MRI . Plan Scribed for Darrel Samuel MD by Frederic Nguyen, emergency medical tech, on 02/19/23 at 1:05 PM, EST. Orders: Orders MR shoulder RT wo con Today M24.811 - Other specific joint derangements of right shoulder, not elsewhere classified Coding Level of Care Code New Pt Level 4 (43736) Diagnoses Internal derangement of right shoulder M24.811
== END 2023-02-19 13:56 | disposition home or self-care (01) ==
PROVIDERS: PCP Family Medicine; Visit Provider Orthopaedic Surgery
DX: M24.811 Other specific joint derangements of right shoulder, not elsewhere classified (principal)
CPT/HCPCS: 99204

== ENCOUNTER → 2023-02-19 12:48 | Outpatient (BNVA) | payer OTHER, SELFPAY | PROVIDERS: PCP Family Medicine; Visit Provider Orthopaedic Surgery ==

== ENCOUNTER 2023-02-27 09:35 | Outpatient (REF) | payer OTHER, SELFPAY ==
--- NOTE | ~2023-02-27 | MR_ITS ---
EXAMINATION: MR SHOULDER WITHOUT CONTRAST, RIGHT CLINICAL INFORMATION: Chronic pain COMPARISON: None available. TECHNIQUE: MRI of the shoulder without contrast was performed on a high-field scanner. FINDINGS: ROTATOR CUFF: Mild-moderate supraspinatus tendinosis. 1.2 x 1.3 cm (AP x ML) full-thickness tear in the distal anterior/middle fibers. Posterior to this, is bursal and articular surface fraying/partial tearing measuring 1.1 x 1.9 cm. Mild-moderate infraspinatus tendinosis, articular surface fraying. Probable small intrasubstance tear in the myotendinous region. Teres minor is intact. Mild-moderate subscapularis tendinosis, articular surface fraying/partial tear in the distal tendon measuring 2.5 cm medial-lateral. No muscle atrophy or fatty infiltration. BICEPS: Biceps tendinosis, with diffuse thin caliber of the tendon.. CORACOACROMIAL ARCH: The undersurface of the acromion is curved with small lateral subacromial spurring. Mild acromioclavicular arthritis. Small fluid in the subacromial subdeltoid space. LABRUM/CAPSULE: No displaced labral tear is seen. Slight thickening of the inferior capsule. GLENOHUMERAL JOINT/MARROW: No fracture. No aggressive marrow replacing lesion. Small effusion. MR/MR shoulder RT wo con IMPRESSION: 1. Mild-moderate supraspinatus tendinosis. 1.2 x 1.3 cm full-thickness tear anteriorly. Posterior to this, there is fraying/partial tearing measuring 1.1 x 1.9 cm. 2. Mild-moderate infraspinatus tendinosis, articular surface fraying. Probable small intrasubstance tear in the myotendinous region. 3. Mild-moderate subscapularis tendinosis, articular surface fraying/partial tear measuring 2.5 cm medial-lateral. 4. Biceps tendinosis with diffuse thin caliber of the tendon. 5. Mild acromioclavicular arthritis. Small lateral subacromial spurring. 6. Small glenohumeral joint effusion. 7. Inferior capsule findings could be related to lack of distention versus capsulitis.
== END 2023-02-27 09:36 | disposition home or self-care (01) ==
LOC: HO.MRI 09:35
PROVIDERS: PCP Family Medicine; Visit Provider Orthopaedic Surgery
DX: M24.811 Other specific joint derangements of right shoulder, not elsewhere classified (principal)
CPT/HCPCS: 73221

== ENCOUNTER 2023-03-15 13:29 | Outpatient (AMB) | payer OTHER, SELFPAY ==
--- NOTE | 2023-03-15 13:47 | A.OFFVIS_ITS ---
Intake Intake Visit Reasons: ov- MRI Shoulder RT review Intake Note: Sarkis is a 47 year old right hand dominant male who presents today for an MRI review of the right shoulder after fishing injury that occurred about 4 years ago. Allergies shellfish derived [SHELLFISH DERIVED] Allergy (Unknown, Verified 02/19/23 12:57) HIVES Shellfish Allergy (Unknown, Uncoded 01/29/23 08:48) hives HPI ov- MRI Shoulder RT review HPI Details Sarkis is a 47 year old man who returns for an MRI review of his right shoulder pain. He denies any changes in his symptoms, and has been working with PT. He has pain at night and with overhead activity. 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 Current occupational exposures/hazards: No Cognitive needs: No Hearing needs: No Vision needs: No Review of Systems Const All systems reviewed & are unremarkable except as noted in HPI and below Physical Exam Const General: no acute distress, alert and awake Orientation/consciousness: patient oriented x3 HEENT Head: Yes normocephalic and Yes atraumatic Eyes EOM: EOMs intact bilaterally Resp Effort & Inspection: normal respiratory effort and able to speak in complete sentences Cardio Jugular venous distension: no JVD Skin General skin exam: turgor normal Rashes: no rashes Neuro General: patient oriented x3 Extrem Other: + lift off 4/5 EC 45/90/130/L5 Psych Appearance: grossly normal Affect: normal affect Attitude: cooperative Results Reviewed Results Reviewed: I personally reviewed the MR images. Mild-moderate supraspinatus tendinosis. 1.2 x 1.3 cm full-thickness tear anteriorly. Posterior to this, there is fraying/partial tearing measuring 1.1 x 1.9 cm. 2. Mild-moderate infraspinatus tendinosis, articular surface fraying. Probable small intrasubstance tear in the myotendinous region. 3. Mild-moderate subscapularis tendinosis, articular surface fraying/partial tear measuring 2.5 cm medial-lateral. 4. Biceps tendinosis with diffuse thin caliber of the tendon. 5. Mild acromioclavicular arthritis. Small lateral subacromial spurring. 6. Small glenohumeral joint effusion. 7. Inferior capsule findings could be related to lack of distention versus capsulitis. Assessment & Plan Assessment & Plan (1) Rotator cuff tear, right: Code(s): M75.101 - Unspecified rotator cuff tear or rupture of right shoulder, not specified as traumatic Plan: Right rotator cuff tear. Full thickness and active. I recommend surgery. I discussed the risks benefits and alternatives including but not limited to the risk of pain, infection, stiffness, need for further surgery as well as potential medical complications such as blood clots, pulmonary embolism and cardiac complications. I explained the surgery and the post operative expectations. He expressed understanding and we will proceed forward accordingly. Plan Prepared for Darrel Samuel MD by Frdeeric Nguyen, medical diagnostic radiographer, on 03/15/23 at 1:48 PM, EST. Coding Level of Care Code Est Pt Level 4 (85100) Diagnoses Rotator cuff tear, right M75.101
== END 2023-03-15 14:05 | disposition home or self-care (01) ==
PROVIDERS: PCP Family Medicine; Visit Provider Orthopaedic Surgery
DX: M75.101 Unspecified rotator cuff tear or rupture of right shoulder, not specified as traumatic (principal)
CPT/HCPCS: 99214

== ENCOUNTER → 2023-03-15 13:29 | Outpatient (BNVA) | payer OTHER, SELFPAY | PROVIDERS: PCP Family Medicine; Visit Provider Orthopaedic Surgery ==

== ENCOUNTER 2023-04-04 07:32 | Day surgery (SDC) | payer OTHER, SELFPAY ==
[2023-03-29 13:50] VITALS: BMI 26.0
[2023-04-04] VITALS (8 sets, daily range): BP systolic 100–145; BP diastolic 63–87; PULSE 57–71; RESP 15–20; TEMP 36.2–36.6; O2SAT 95–98; BMI 26.3
[2023-04-04] MEDS: Lactated Ringers 1,000 ML 50 ML IVCONT (08:01)
--- NOTE | 2023-04-04 08:07 | HO.ANESPROP2 ---
HPI - Anesthesia Eval Consult details Narrative: for right shoulder cuff repair PMFSH Active Problems Active Problems: All Active Problems (Updated 03/29/23 @ 13:45 by Rita Grace RN) Rotator cuff tear, right (Acute) Internal derangement of right shoulder (Acute) Right shoulder pain (Acute) Low TSH level (Acute) Anemia (Acute) Low HDL (under 40) (Acute) Mild anemia (Acute) Screening for colon cancer (Acute) Screening for prostate cancer (Acute) Adult general medical exam (Acute) Hematochezia (Acute) Nausea (Acute) Left sided abdominal pain (Acute) Tubular adenoma of colon (Acute) LLQ abdominal pain (Acute) Laboratory exam ordered as part of routine general medical examination (Acute) Past Medical History Medical History Mild anemia Diverticulitis of both large and small intestine with abscess Abscess of sigmoid colon Family history of coronary artery disease Family History Family history of problems with anesthesia: No Surgical History Surgical History Hx of repair of left rotator cuff H/O colonoscopy History of dermoid cyst excision S/P rotator cuff repair S/P laparoscopic-assisted sigmoidectomy History of Problems with Anesthesia: No Social History Social History Housing: House Alcohol intake: never Patient Tobacco Use Status: Former Tobacco user e-Cigarette/Vaping Use: Never Used Second Hand Smoke Exposure: No Substance Use Type: Marijuana Are you DNR?: No Advance Directives: No Advance Directives Information Provided: Yes Nutrition Risks: No Nutritional Risk service: No Current occupational status: employed 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 Current occupational exposures/hazards: No Cognitive needs: No Hearing needs: No Vision needs: No Meds Allergies Allergy/AdvReac Type Severity Reaction Status Date / Time shellfish derived Allergy Intermediate HIVES Verified 03/29/23 13:42 [SHELLFISH DERIVED] Active Medications: Current Medications Lactated Ringer's (Lr) 1,000 mls @ 50 mls/hr IVCONT .Q20H SANDRA Last Admin: 04/04/23 08:01 Dose: 50 mls/hr Exam Height,Weight and Vital Signs: Height 5 ft 7 in Weight 76.2 kg Last Vital Signs Temp 98 F 04/04/23 07:49 Pulse 71 04/04/23 07:49 Resp 20 04/04/23 07:49 BP 145/87 H 04/04/23 07:49 Pulse Ox 98 04/04/23 07:49 O2 Del Method Room Air 04/04/23 07:49 Airway Mallampati Class: II TM Dist: >3cm Neck ROM: Full Heart: rrr Lungs: cta Assessment and Plan Final Anesthetic Review Family History of Problems with Anesthesia: No History of Problems with Anesthesia: No NPO: Yes ASA Class: III (daily heavy marihuana use) Final Preanesthetic Review: No Changes in Pt Med Stat, Meds/Allgs Chart Reviewed, Consent Obtained/Reviewed and Anes Risks/Benef Reviewed Patient Risk: Intermediate Procedure Risk: Intermediate Anesthetic Plan Anesthetic Plan: GA and Regional Block Disposition: Standard PACU
--- NOTE | 2023-04-04 09:02 | PC.NURSE ---
nerve block by anesthesia pt tolerated well vss
--- NOTE | 2023-04-04 09:15 | MHC.SHP ---
Pre-Procedural Eval Section A - 24 Hr Update-Section A only Date of Service: 04/04/23 The patient is an INPATIENT: No Changes since office visit: No Cold of Flu in the past 2 weeks, No New Medical Problems, No Changes in Medication and No Patient answered all questions The patient has been examined within 24 hours of the surgical procedure. The History & Physical has been completed within 30 days and I have reviewed it.: Yes Section B - Complete if H&P > 30 days Chief Complaint: Complete rotator cuff tear or rupture of right kali Allergies: Allergies Allergy/AdvReac Type Severity Reaction Status Date / Time shellfish derived Allergy Intermediate HIVES Verified 03/29/23 13:42 [SHELLFISH DERIVED] Plan I have reviewed the history and physical and performed a pertinent physical examination on my patient. No changes have occurred unless specified. Time Spent With Patient Time: Total time managing care of this patient today ____ minutes.
--- NOTE | 2023-04-04 11:24 | PM.OP ---
Brief Operative Note Date of Service: 04/04/23 Pre-op diagnosis: Left RTC tear Post-op diagnosis: other (1)left rtc tear 2) left SLAP tear) Procedure: 1) Left RTC repair ( subscapularis, supraspinatus) 2) Biceps tenodesis Implants: [employer] Helacoil medial row x 2 [employer] Helacoil 5.0 knotless x 3 Surgeon: Darrel Samuel MD Anesthesia: GETA and regional Was an Dealer Development Manager used for this Procedure?: Yes Dealer Development Manager: Tiffany Kent Estimated blood loss (mL): 25 IV fluids (mL): 1,000 Pathology: none sent Condition: stable Disposition: PACU
--- NOTE | 2023-04-04 11:27 | W.PM.OPN ---
Operative Note Operative Note Date of Service: 04/04/23 Narrative: Date of Service: 04/04/23 Pre-op diagnosis: Left RTC tear Post-op diagnosis: other (1)left rtc tear 2) left SLAP tear) Procedure: 1) Left RTC repair ( subscapularis, supraspinatus) 2) Biceps tenodesis Implants: [employer] Helacoil medial row x 2 [employer] Helacoil 5.0 knotless x 3 Surgeon: Darrel Samuel MD Anesthesia: GETA and regional Was an Concrete Pourer used for this Procedure?: Yes Concrete Pourer: Tiffany Kent Estimated blood loss (mL): 25 IV fluids (mL): 1,000 Pathology: none sent Condition: stable Disposition: PACU Procedure in detail: Patient was brought to the operating room and placed the the beach chair position. All bony prominences were well padded and the limb was prepped and draped in standard sterile fashion. A time out was called to identify proper site, proper procedure and proper surgeon. IV antibiotics per weight were administered. I began by making a posterolateral stab incision with a 15 blade. A blunt trochar was placed into the glenohumeral joint and I insufflated the joint with saline and a 30 degree arthroscope was placed. I established an outside- in anterior portal just distal to the biceps tendon. I then began my inspection of the glenohumeral joint. There was a large type2 SLAP tear. There were minimal cartilage changes at the inferior glenoid without humeral head changes. There was a full thickness undersurface RTC tear. The subcapularis was partially intact. ~ 50% torn and a portion that was not mobile and retracted medially. I debrided the loose cartilage of the glenoid and the degenerative labral tearing and performed a biceps tenotomy after placeing 2 looped sutures through the biceps distal to the tenotomy site. I then mobilized the subscapularis and placed 2 looped sutures through the leading edge. I then used a davis to debride the attacdhment site and then placed the two limbs from the biceps and the two limbs from the subscapularis and then dunked butth into a 5.0 anchor. I then removed the trochar and entered the subacromial space. A direct lateral portal was then established and I performed a bursectomy. The cuff was then examined. There was a full thickness tear of the supraspinatus with mild retraction. The tear was mobile. I placed two medial row double loaded anchors after using a tap just adjacent to the articular cartilage and then brought the suture limbs ( 8) through the medial cuff. I then debrided the bare area down to bleeding bone and, using a cross bridge configuration, brought 4 limbs to each of two lateral 5.0 anchors. This re-approximated the cuff anatomy anatomically. Once I was satisfied with the repair I perfomred a 5mm subacromial decompression with a large davis. Final images were captured and I removed all instrumentation. Portals were closed with nylon. Patient was placed in an abduction sling, extubated and brought to the recovery room in stable condition. There were no known complications.
== END 2023-04-04 13:28 | disposition home or self-care (01) ==
LOC: HO.SSS 07:33
PROVIDERS: PCP Family Medicine; Visit Provider Orthopaedic Surgery
PROC: (CPT 29827; principal; 2023-04-04 09:40)
DX: M75.121 Complete rotator cuff tear or rupture of right shoulder, not specified as traumatic (principal)
CPT/HCPCS: 29827; 29828; C1713; J0171; J0665; J0690; J1100; J2250; J2405; J2704; J3010

== ENCOUNTER → 2023-04-04 07:32 | Outpatient (BNV) | payer OTHER, SELFPAY | PROVIDERS: PCP Family Medicine; Visit Provider Orthopaedic Surgery | DX: S43.432A Superior glenoid labrum lesion of left shoulder, initial encounter (principal); S46.012A Strain of muscle(s) and tendon(s) of the rotator cuff of left shoulder, initial encounter | CPT/HCPCS: 29827 ==

== ENCOUNTER 2023-04-12 09:41 | Outpatient (AMB) | payer OTHER, SELFPAY ==
--- NOTE | 2023-04-12 09:42 | A.OFFVIS_ITS ---
Intake Intake Visit Reasons: PO RT RTC 04/04/23 NE Intake Note: Sarkis is a 47 year old male who presents today for a post op appointment s/p right RTC 04/04/23 NE. PT appointment is on 04/13/23. Patient reports he is having increase of pain with pain level 9/10. Allergies shellfish derived [SHELLFISH DERIVED] Allergy (Intermediate, Verified 04/12/23 09:45) HIVES HPI PO RT RTC 04/04/23 NE HPI Details 47-year-old male who presents in the off ice today 8 days status post left rotator cuff repair (subscapularis, supraspinatus) and biceps tenodesis, which was performed on 04/04/[address] Samuel. While in the office today the patient reports he has an increase in pain. He rates his pain a 9/10 in the offi ce today. 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 Sutures intact. No surrounding erythema or drainage. No signs of infection. Forward flexion and abduction to 45 degrees. External rotation to neutral. NVI. Assessment & Plan Assessment & Plan (1) S/P left rotator cuff repair: Onset Date: ~04/04/23 Comment: Left rotator cuff repair (subscapularis, supraspinatus) and biceps tenodesis NE Code(s): Z98.890 - Other specified postprocedural states Plan Mr. Palomo is a 47-year-old male who presents in the office today 8 days status post left rotator cuff repair (subscapularis, supraspinatus) and biceps tenodesis, which was performed on 04/04/[address] Samuel. While in the office today the patient reports he has an increase in pain. He rates his pain a 9/10 in the office today. Sutures were removed and steri-stripes were applied. He has a his physical therapy session tomorrow, 04/13/2023. He will remain in the sling at all times. Refill of Percocet 5-325mg po sent to pharmacy weaned to q6hrs, prn pain. Follow up will be in [address] Samuel, or sooner if needed. Medications: Changed From oxycodone-acetaminophen 5-325 mg (Percocet) Partial Fill upon patient request. 1 tab PO Q4-6H 7 days PRN 42 tabs 0RF pain (scale score 4-6) To oxycodone-acetaminophen 5-325 mg (Percocet) Partial Fill upon patient request. 1 tab PO Q6H 7 days PRN 28 tabs 0RF pain (scale score 4-6) Patient Instructions: Scribed by Yaz Thurman medical recruiter, for Tiffany Kent PA-C on 04/12/2023 at 9:47 am, EST. Coding Level of Care Code Global (49054) Diagnoses S/P left rotator cuff repair Z98.890
== END 2023-04-12 10:03 | disposition home or self-care (01) ==
PROVIDERS: PCP Family Medicine; Visit Provider Physician Assistant
DX: Z98.890 Other specified postprocedural states (principal)
CPT/HCPCS: 99024

== ENCOUNTER → 2023-04-12 09:41 | Outpatient (BNVA) | payer OTHER, SELFPAY | PROVIDERS: PCP Family Medicine; Visit Provider Physician Assistant ==

== ENCOUNTER 2023-05-10 10:02 | Outpatient (AMB) | payer OTHER, SELFPAY ==
--- NOTE | 2023-05-10 10:05 | A.OFFVIS_ITS ---
Intake Intake Visit Reasons: PO RT RTC 04/04/23 NE Intake Note: Sarkis is a 47 year old male who presents today for a post op appointment s/p right RTC 04/04/23 NE. Patient reports he is doing well. He states that his pain is worse at night. Allergies shellfish derived [SHELLFISH DERIVED] Allergy (Intermediate, Verified 05/10/23 10:07) HIVES HPI PO RT RTC 04/04/23 NE HPI Details 47-year-old male who presents in the off ice today 1 month status post left rotator cuff repair (subscapularis, supraspinatus) and biceps tenodesis, which was performed on 04/04/[address] Samuel. I last saw the patient in the office on 04/12/2023. At this time he was encouraged to work with physical therapy. He was to remain in the sling at all times. His Percocet 5-325 mg PO was sent to pharmacy and he was educated he was to begin to wean to Q6H PRN for pain. While in the office today the patient reports he is doing well. He does reports an increase in pain at night. 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 External rotation to neutral. Incision site is fully healed. No signs of infection. Assessment & Plan Assessment & Plan (1) S/P left rotator cuff repair: Onset Date: ~04/04/23 Comment: Left rotator cuff repair (subscapularis, supraspinatus) and biceps tenodesis NE Code(s): Z98.890 - Other specified postprocedural states Plan Mr. Palomo is a 47-year-old male who presents in the office today 1 month status post left rotator cuff repair (subscapularis, supraspinatus) and biceps tenodesis, which was performed on 04/04/[address] Samuel. I last saw the patient in the office on 04/12/2023. At this time he was encouraged to work with physical therapy. He was to remain in the sling at all times. His Percocet 5-325 mg PO was sent to pharmacy and he was educated he was to begin to wean to Q6H PRN for pain. While in the office today the patient reports he is doing well. He does reports an increase in pain at night. Encouraged to continue to work with physical therapy. May discontinue the sling at 6 weeks postop, which is next week. Follow up will be in [address] Samuel, or sooner if needed. Patient Instructions: Scribed by Yaz Thurman medical management trainer, for Tiffany Kent PA-C on 05/10/2023 at 10:13 am, EST. Coding Level of Care Code Global (17267) Diagnoses S/P left rotator cuff repair Z98.890
== END 2023-05-10 10:35 | disposition home or self-care (01) ==
PROVIDERS: PCP Family Medicine; Visit Provider Physician Assistant
DX: Z98.890 Other specified postprocedural states (principal)
CPT/HCPCS: 99024

== ENCOUNTER → 2023-05-10 10:02 | Outpatient (BNVA) | payer OTHER, SELFPAY | PROVIDERS: PCP Family Medicine; Visit Provider Physician Assistant ==

== ENCOUNTER 2023-06-21 10:35 | Outpatient (AMB) | payer OTHER, SELFPAY ==
--- NOTE | 2023-06-21 11:01 | MHC.OFFVIS ---
Intake Visit Reasons: PO RT RTC 04/04/23 NE-follow up Intake Note: Sarkis is a 47 year old male who presents today for a post op appointment s/p right RTC 04/04/23 NE. Patient reports that he is doing well. He reports that he has not concerns at the moment. Allergies shellfish derived [SHELLFISH DERIVED] Allergy (Intermediate, Verified 06/21/23 11:01) HIVES HPI HPI PO RT RTC 04/04/23 NE-follow up: Details: Sarkis is a 47 year old male who presents today for a post op appointment s/p right RTC 04/04/23 NE. He underwent subscapularis and supraspinatus repair. Patient reports that he is doing well. He reports that he has not concerns at the moment. [facility] Medical History Mild anemia Diverticulitis of both large and small intestine with abscess Abscess of sigmoid colon Family history of coronary artery disease Surgical History Hx of repair of left rotator cuff H/O colonoscopy History of dermoid cyst excision S/P rotator cuff repair S/P laparoscopic-assisted sigmoidectomy Social History Housing: House Alcohol intake: never Patient Tobacco Use Status: Former Tobacco user e-Cigarette/Vaping Use: Never Used Second Hand Smoke Exposure: No Substance Use Type: Marijuana service: No Current occupational status: employed 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 He may resume normal range of motion but no lifting and no overhead work. He is anticipated to return to overhead lifting in November and I think this is reasonable. He should continue physical therapy and follow up to see me in 2 months. Coding Level of Care Code Global (44646) Diagnoses S/P left rotator cuff repair Z98.890
== END 2023-06-21 11:09 | disposition home or self-care (01) ==
PROVIDERS: PCP Family Medicine; Visit Provider Orthopaedic Surgery
DX: Z98.890 Other specified postprocedural states (principal)
CPT/HCPCS: 99024

== ENCOUNTER → 2023-06-21 10:35 | Outpatient (BNVA) | payer OTHER, SELFPAY | PROVIDERS: PCP Family Medicine; Visit Provider Orthopaedic Surgery ==

== ENCOUNTER 2023-07-02 09:00 | Outpatient (RCR) | payer OTHER, SELFPAY ==
--- NOTE | 2023-04-13 15:30 | MHC.PT.EP ---
[facility] [place] Office [place] Office [place] Office [address] [phone] F: [phone] F: [phone] F: [phone] F: [phone] Physical Therapy Plan of Care Date of Evaluation: 04/13/23 Date of Surgery: 04/04/23 Diagnosis: status post left rotator cuff repair (subscapularis, supraspinatus) and biceps tenodesis 04/04/23 W NE Assessment: 47 YO MALE REF TO PT S/P Rt RTC REPAIR (SUBSCAP/ SUPRASPINATUS) WITH BICEPS TENODESIS ON 04/04/23. 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 THE Pt HAS POST-OP Rt SH PAIN, DECR POSTURAL AWARENESS, LIMITED / RESTRICTED ROM Rt SH, AND GENERALIZED Rt SH WEAKNESS. HE IS LIMITED WITH ADLs-> COMPENSATING WITH LEFT UE. HE WOULD BENEFIT FROM PT TO ADDRESS THE ABOVE FINDINGS AND GUIDE HIM ALONG HIS POST-OP COURSE, REINFORCING PRECAUTIONS / RESTRICTIONS W SUBSCAP/ SUPRASPIN / BICEPS TENODESIS INVOLVEMENT. Frequency and Duration: The patient will be seen 1-2 x WK x 12 WKS Short Term Goals: GRADUALLY INCREASE PROM TO Rt SHOULDER , W RESPECT TO SUBSCAP/SUPRASPIN REPAIR AND TENODESIS DECREASE Rt SH PAIN IMPROVE POSTURAL AWARENESS/ SELF-CORRECT MAINTAIN INTEGRITY OF Rt SH REPAIR Compounding Scaler Goals: FULL AROM Rt SH RESTORE STRENGTH Rt RC/ SHOULDER COMPLEX Pt RETURN TO REG FUNCTIONAL ACTIVITIES/ ADLs/ WORK IMPROVE SPADI SCORE, 118/130 AT EVAL Treatment Plan: Modalities to reduce pain, spasms and effusion. Manual therapy to restore motion and function. Therapeutic exercise to improve strength and flexibility. Neuromuscular re-education for posture and balance. Therapeutic activities to return to functional activities of daily living. Electronically signed by: TARYN MARVIN,PT Please sign and return to therapist. Thank you for your referral.
--- NOTE | 2023-07-12 13:42 | MHC.PT.DC ---
[facility] [place] Office [place] Office [place] Office [address] [phone] F: [phone] F: [phone] F: [phone] F: [phone] Physical Therapy Discharge Report Diagnosis: status post left rotator cuff repair (subscapularis, supraspinatus) and biceps tenodesis 04/04/23 W NE Date of Surgery: 04/04/23 Date of Evaluation: 04/13/23 Date of Discharge: 07/12/23 Treatments to Date: 12 Cancellations to Date: 3 No Shows to Date: 7 Discharge Status: Discharge Summary: AT LAST ATTENDED VISIT ROM HAS PROGRESSED AND FORWARD ELEVATION IS NOW APROX 160 HE IS ALSO ABLE TO PERFORM MORE FUNCTIONAL ACTIVITIES ALTHOUGH FATIGUES QUICKLY. HOWEVER HE NO SHOWED FOR LAST 4 SCHEDULED VISITS AND HAS NO FURTHER VISITS SCHEDULED. ATTEMPTS TO REACH BY PHONE WERE UNSUCESSFUL. AT THIS TIME WE ARE DISCHARGING CURRENT CHART FOR NON-COMPLIANCE. JUDIE DOES HAVE A COMPREHENSIVE HOME PROGRAM WHICH HE CAN CONT WITH INDEPENDENTLY UNTIL NEXT MD FOLLOW UP. Electronically signed by: BARAK SARMIENTO PT DPT Please sign and return to therapist. Thank you for your referral.
== END 2023-07-12 13:42 | disposition home or self-care (01) ==
LOC: HO.PT 09:00
PROVIDERS: PCP Family Medicine; Visit Provider Orthopaedic Surgery
DX: M75.101 Unspecified rotator cuff tear or rupture of right shoulder, not specified as traumatic (principal); Z98.890 Other specified postprocedural states
CPT/HCPCS: 97110; 97140; 97162; 97530

== ENCOUNTER 2023-09-14 11:44 | Outpatient (AMB) | payer OTHER, SELFPAY ==
--- NOTE | 2023-09-14 11:45 | A.OFFVIS_ITS ---
Intake Visit Reasons: OV-RT RTC 04/04/23-follow up Intake Note: Sarkis is a 47 year old right hand dominant male who presents today for a follow up of his right RTC repair 04/04/23. Allergies shellfish derived [SHELLFISH DERIVED] Allergy (Intermediate, Verified 06/21/23 11:01) HIVES HPI HPI OV-RT RTC 04/04/23-follow up: Details: Sarkis is a 47 year old right hand dominant male who presents today for a follow up of his right RTC repair 04/04/23. He is doing well but still weak and stiff [facility] Medical History Mild anemia Diverticulitis of both large and small intestine with abscess Abscess of sigmoid colon Family history of coronary artery disease Surgical History Hx of repair of left rotator cuff H/O colonoscopy History of dermoid cyst excision S/P rotator cuff repair S/P laparoscopic-assisted sigmoidectomy Social History Housing: House Alcohol intake: never Patient Tobacco Use Status: Former Tobacco user e-Cigarette/Vaping Use: Never Used Second Hand Smoke Exposure: No Substance Use Type: Marijuana service: No Current occupational status: employed 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 He is doing well. COntinue light strengthening and ROM. No overhead work and no lifting > 10 lbs. F/u 8 weeks Coding Level of Care Code Est Pt Level 3 (68302) Diagnoses S/P left rotator cuff repair Z98.890
== END 2023-09-14 12:11 | disposition home or self-care (01) ==
PROVIDERS: PCP Family Medicine; Visit Provider Orthopaedic Surgery
DX: S46.012D Strain of muscle(s) and tendon(s) of the rotator cuff of left shoulder, subsequent encounter (principal)
CPT/HCPCS: 99212

== ENCOUNTER → 2023-09-14 11:44 | Outpatient (BNVA) | payer OTHER, SELFPAY | PROVIDERS: PCP Family Medicine; Visit Provider Orthopaedic Surgery ==